=== PATIENT | female | born 1935 | race Caucasian/White ===

== ENCOUNTER → 2016-05-21 | Outpatient (CLI) | payer OTHER ==
--- NOTE | 2016-05-21 12:55 | EKG ---
[address] [address] Measurements Intervals [place] Rate: 54 P: 75 MN: 184 QRS: 83 QRSD: 138 T: 32 QT: 489 QTc: 474 Interpretive Statements SINUS BRADYCARDIA WITH OCCASIONAL SUPRAVENTRICULAR PREMATURE COMPLEXES RIGHT BUNDLE BRANCH BLOCK [120+ ms QRS DURATION, UPRIGHT V1, 40+ ms S IN I/aVL/V4/V5/V6] [email or web address]
[2016-05-21 13:56] LABS: BASOPHILS # (AUTO) 0.24 10*3/UL; BASOPHILS % (AUTO) 2.2 % (0-1); HEMOGLOBIN 17.2 g/dL (12.0-16.0); IMM GRAN % (AUTO) 0.3 % (0-5); IMM GRAN# (AUTO) 0.03 10*3/UL; LYMPHOCYTES # (AUTO) 3.01 10*3/uL; MEAN CORPUSCULAR HEMOGLOBIN 31.4 PG (27-31); MEAN CORPUSCULAR HGB CONC 33.1 g/dL (33-37); MONOCYTES # (AUTO) 1.04 10*3/UL (0.3-0.8); MONOCYTES % (AUTO) 9.3 % (5-15); NEUTROPHILS # (AUTO) 6.71 10*3/UL; NEUTROPHILS % (AUTO) 60.2 % (50-80); RDW COEFFICIENT OF VARIATION 15.2 % (11.5-14.5); RED BLOOD COUNT 5.47 10^6/uL (4.20-5.40); WHITE BLOOD COUNT 11.14 10^3/uL (4.8-10.8)
[2016-05-21 13:57] LABS: PLATELET MORPHOLOGY COMMENT NORMAL MORPHOLOGY (NORM)
[2016-05-21 14:12] LABS: BILIRUBIN,TOTAL 0.7 mg/dL (0.3-1.2); BUN/CREATININE RATIO 24.44 (6-20); C-REACTIVE PROTEIN 0.7 mg/dL (0.0-0.9); CREATININE 0.9 mg/dL (0.50-1.20); POTASSIUM 3.7 meq/L (3.8-5.2); TOTAL PROTEIN 8.1 g/dL (6.1-8.0)
[2016-05-21 14:35] LABS: ERYTHROCYTE SEDIMENTATION RATE 2 MM/HR (0-20)
== END ==
LOC: MOB LAB 12:39
PROVIDERS: ATTEND Internal Medicine
DX: R20.2 Paresthesia of skin (principal); R07.9 Chest pain, unspecified; R63.4 Abnormal weight loss; R00.1 Bradycardia, unspecified; I45.10 Unspecified right bundle-branch block
CPT/HCPCS: 36415; 80053; 84443; 85025; 85652; 86140; 93005; 93010

== ENCOUNTER → 2016-05-30 | Outpatient (CLI) | payer OTHER, BC ==
[2016-05-30 10:13] LABS: BUN/CREATININE RATIO 22.5 (6-20)
== END ==
LOC: LAB 09:44
PROVIDERS: ATTEND Internal Medicine
DX: R63.4 Abnormal weight loss (principal)
CPT/HCPCS: 80048

== ENCOUNTER → 2016-06-19 | Outpatient (CLI) | payer OTHER ==
[2016-06-19 11:28] LABS: EOSINOPHILS # (AUTO) 0.15 10*3/UL; EOSINOPHILS % (AUTO) 1.5 % (0-8); HEMOGLOBIN 16.9 g/dL (12.0-16.0); LYMPHOCYTES # (AUTO) 2.06 10*3/uL; MEAN CORPUSCULAR HEMOGLOBIN 31.8 PG (27-31); MEAN CORPUSCULAR HGB CONC 33.1 g/dL (33-37); MEAN CORPUSCULAR VOLUME 95.9 FL (81-99); MEAN PLATELET VOLUME 10.6 FL (7.4-12.2); MONOCYTES # (AUTO) 1.19 10*3/UL (0.3-0.8); MONOCYTES % (AUTO) 11.8 % (5-15); NEUTROPHILS # (AUTO) 6.61 10*3/UL; NEUTROPHILS % (AUTO) 65.2 % (50-80); RED BLOOD COUNT 5.32 10^6/uL (4.20-5.40)
[2016-06-19 11:43] LABS: PLATELET MORPHOLOGY COMMENT NORMAL MORPHOLOGY (NORM); RBC MORPHOLOGY COMMENT NORMAL MORPHOLOGY (NORM); WBC MORPHOLOGY COMMENT NORMAL MORPHOLOGY (NORM)
== END ==
LOC: LAB 11:17
PROVIDERS: ATTEND Internal Medicine
DX: D75.1 Secondary polycythemia (principal); R01.1 Cardiac murmur, unspecified; L98.8 Other specified disorders of the skin and subcutaneous tissue
CPT/HCPCS: 36415; 85025; 99213; G0463

== ENCOUNTER → 2016-09-19 | Outpatient (CLI) | payer OTHER | LOC: MMPC 11:11 | PROVIDERS: ATTEND Internal Medicine | DX: D75.1 Secondary polycythemia (principal); C44.619 Basal cell carcinoma of skin of left upper limb, including shoulder; R63.4 Abnormal weight loss | CPT/HCPCS: 99213; G0463 ==

== ENCOUNTER → 2016-09-24 | Outpatient (CLI) | payer OTHER ==
[2016-09-24 11:09] LABS: BASOPHILS # (AUTO) 0.09 10*3/UL; EOSINOPHILS # (AUTO) 0.26 10*3/UL; EOSINOPHILS % (AUTO) 2.9 % (0-8); HEMATOCRIT 49.5 % (37.0-47.0); HEMOGLOBIN 16.3 g/dL (12.0-16.0); LYMPHOCYTES # (AUTO) 2.84 10*3/uL; MEAN CORPUSCULAR HEMOGLOBIN 32.1 PG (27-31); MEAN CORPUSCULAR HGB CONC 32.9 g/dL (33-37); MEAN CORPUSCULAR VOLUME 97.6 FL (81-99); MEAN PLATELET VOLUME 11.3 FL (7.4-12.2); MONOCYTES # (AUTO) 0.85 10*3/UL (0.3-0.8); MONOCYTES % (AUTO) 9.5 % (5-15); NEUTROPHILS # (AUTO) 4.94 10*3/UL; NEUTROPHILS % (AUTO) 54.9 % (50-80); RED BLOOD COUNT 5.07 10^6/uL (4.20-5.40)
--- NOTE | 2016-09-24 11:11 | DI ---
PA /LATERAL CHEST X-RAY, 09/24/2016 10:24 AM : Clinical History: Abnormal breath sounds. Previous Exam: 05/16/2015. There is no acute soft tissue or bony abnormality. There is a pectus excavatum deformity. Heart size is normal. Lungs are clear. Mediastinal structures are normal. There is a calcified granuloma measuri ng approximately 3 x 4 mm located above the left costophrenic angle and visualized between the IVC an d spine on the lateral view. There is a second calcified granuloma toward the inferior aspect of the retrosternal airspace on the lateral film. Both of these were present and have not changed. Reading: Normal chest x-ray. There are calcified granulomas visualized that were present on the earlier study and have not changed.
[2016-09-24 11:12] LABS: PLATELET MORPHOLOGY COMMENT NORMAL MORPHOLOGY (NORM); RBC MORPHOLOGY COMMENT NORMAL MORPHOLOGY (NORM); WBC MORPHOLOGY COMMENT NORMAL MORPHOLOGY (NORM)
[2016-09-24 11:36] LABS: BUN/CREATININE RATIO 22.22 (6-20); CALCIUM 9.7 mg/dL (8.7-10.7); SERUM ALBUMIN 4.1 g/dL (3.5-4.8)
== END ==
LOC: MOB LAB 09:54
PROVIDERS: ATTEND Internal Medicine
DX: D75.1 Secondary polycythemia (principal); C44.619 Basal cell carcinoma of skin of left upper limb, including shoulder; R09.89 Other specified symptoms and signs involving the circulatory and respiratory systems; R63.4 Abnormal weight loss; Z90.49 Acquired absence of other specified parts of digestive tract; Z98.890 Other specified postprocedural states
CPT/HCPCS: 36415; 71020; 80053; 82607; 83540; 83550; 85025